=== PATIENT | male | born 1980 | race Hispanic/Latino ===

== ENCOUNTER 2017-02-16 23:31 | Emergency (ER) | payer OTHER ==
[2017-02-16 23:51] VITALS: BP 117/73; PULSE 94; RESP 16; TEMP 98; O2SAT 98
--- NOTE | 2017-02-17 00:13 | ED PDOC ---
HPI: General Adult Time Seen by Provider: 02/16/17 23:49 Chief Complaint (Nursing): Upper Extremity Problem/Injury History Per: Patient Additional Complaint(s): Pt. states earlier today he slipped and fell injuring R elbow. Denies head injury, other injury, numbness, tingling. Admits to drinking alcohol tonight. Past Medical History Reviewed: Historical Data, Nursing Documentation, Vital Signs Vital Signs: Last Vital Signs Temp 98 F 02/16/17 23:49 Pulse 94 H 02/16/17 23:49 Resp 16 02/16/17 23:49 BP 117/73 02/16/17 23:49 Pulse Ox 98 02/17/17 01:19 - Family History Family History: States: No Known Family Hx - Allergies Allergies/Adverse Reactions: Allergies Allergy/AdvReac Type Severity Reaction Status Date / Time No Known Allergies Allergy Verified 02/17/17 00:08 Review of Systems ROS Statement: Except As Marked, All Systems Reviewed And Found Negative Physical Exam - Physical Exam Appears: Positive for: Well, Non-toxic, No Acute Distress Skin: Positive for: Normal Color, Warm. Negative for: Rash Pulses-Radial (L): 2+ Pulses-Radial (R): 2+ Extremity: Positive for: Normal ROM (actively of R elbow), Other (R elbow with superficial abrasion on R elbow; R elbow without tenderness, swelling, or deformity) Neurologic/Psych: Positive for: Alert, Oriented, Gait (steady, unassisted), Other (no slurred speech). Negative for: Aphasia, Facial Droop - ECG O2 Sat by Pulse Oximetry: 98 - Progress ED Course And Treament: Tetanus prophylaxis administered. Wound cleansed and dressed. Bacitracin ointment applied R elbow x-ray: no fx or dislocation or fat pad sign Disposition - Clinical Impression Clinical Impression: Elbow injury, Alcohol intoxication - Patient ED Disposition Is Patient to be Admitted: No - Disposition Disposition: Routine/Home Disposition Time: 01:19 Condition: STABLE Instructions: Elbow Sprain (ED) Forms: [facility] [facility] ([place])
--- NOTE | 2017-02-17 09:37 | RAD ---
PROCEDURE: Radiographs of the right elbow. HISTORY: trauma COMPARISON: No prior. FINDINGS: BONES: No acute fracture or destructive bony lesion identified. JOINTS: Normal. No osteoarthritis. SOFT TISSUES: Normal. JOINT EFFUSION: None. OTHER FINDINGS: None. IMPRESSION: Unremarkable radiographs of the right elbow.
== END 2017-02-17 01:45 | disposition home or self-care (01) ==
LOC: H.ER 23:31
DX: F10.129 Alcohol abuse with intoxication, unspecified (principal); S59.901A Unspecified injury of right elbow, initial encounter; W01.0XXA Fall on same level from slipping, tripping and stumbling without subsequent striking against object, initial encounter; Y92.89 Other specified places as the place of occurrence of the external cause